=== PATIENT | female | born 1950 | race Caucasian/White ===

== ENCOUNTER 2021-04-25 16:58 | Outpatient (REF) | payer MEDICARE, BC, SELFPAY ==
[2021-04-25 21:37] LABS: Hemoglobin A1C 5.4 % (<5.7)
[2021-04-25 21:56] LABS: Calculated LDL 126 mg/dL (<100); Cholesterol 209 mg/dL (<200); HDL Cholesterol 66 mg/dL (40-60); Triglyceride 86 mg/dL (<150)
== END 2021-04-25 16:59 | disposition home or self-care (01) ==
LOC: NCHCN 16:58
PROVIDERS: PCP Family Medicine; Visit Provider Family Medicine
DX: Z00.00 Encounter for general adult medical examination without abnormal findings (principal); R73.03 Prediabetes; Z13.220 Encounter for screening for lipoid disorders
CPT/HCPCS: 80061; 83036

== ENCOUNTER 2023-10-28 16:51 | Outpatient (REF) | payer MEDICARE, BC, SELFPAY ==
[2023-10-28 15:30] LABS: Anion Gap 6.1 mmol/L (3-11); BUN 26 mg/dL (7-18); CO2 29.9 mmol/L (21.0-32.0); CREATININE 0.9 mg/dL (0.55-1.02); Calculated LDL 124 mg/dL (<100); Chloride 105 mmol/L (98-107); Cholesterol 221 mg/dL (<200); Estimated GFR 67.92 (mL/min/1.73m2); Glucose 117 mg/dL (74-106); HDL Cholesterol 79 mg/dL (40-60); Potassium 4.2 mmol/L (3.5-5.1); Sodium 141 mmol/L (136-145); Triglyceride 92 mg/dL (<150)
[2023-12-15 18:09] LABS: COMMENT (LAB VIEW ONLY) 20.87 mg/dL; Microalb ug/mg Crea 13.9 ug/mg Cr
== END 2023-10-28 16:52 | disposition home or self-care (01) ==
LOC: NCHCN 16:51
PROVIDERS: PCP Family Medicine; Visit Provider Family Medicine
DX: I10 Essential (primary) hypertension (principal)
CPT/HCPCS: 80048; 80061; 82043; 82570

== ENCOUNTER 2024-10-04 18:36 | Outpatient (REF) | payer MEDICARE, BC, SELFPAY ==
[2024-10-04 15:31] LABS: Anion Gap 10.7 mmol/L (3-11); BUN 16 mg/dL (7-18); CO2 26.3 mmol/L (21.0-32.0); CREATININE 0.9 mg/dL (0.55-1.02); Calcium 9.9 mg/dL (8.5-10.1); Chloride 105 mmol/L (98-107); Glucose 111 mg/dL (74-106); Potassium 3.9 mmol/L (3.5-5.1); Sodium 142 mmol/L (136-145)
--- OUTSIDE RECORDS SUMMARY | 2024-10-04 18:40 | XMS_ITS | Encounter Summary ---
Author Organization [facility] Address [address] [place] [address] Care Team Providers Care Financing Analyst Name Role Phone Angeline Osuna MD Primary Care Provider Reason for Referral * Radiology Services (Routine/Next Available) - Authorization Not Required Specialty Diagnoses / Procedures Referred By Syed corey Referred To Contact Diagnoses Other abnormal and inconclusive findings on diagnostic imaging of breast Procedures US BREAST LIMITED RIGHT Angeline Osuna MD [address] [place] [address] Phone: tel: fax: [facility] Referral ID Status Reason Start Date Expiration Date Visits Requested Visits Authorized [id number] Authorization Not Required 2 1 1 Reason for Visit * Radiology Services (Routine/Next Available) - Authorization Not Required Specialty Diagnoses / Procedures Referred By Syed corey Referred To Contact Diagnoses Other abnormal and inconclusive findings on diagnostic imaging of breast Procedures US BREAST LIMITED RIGHT Angeline Osuna MD [address] [place] [address] Phone: tel: fax: [facility] Referral ID Status Reason Start Date Expiration Date Visits Requested Visits Authorized [id number] Authorization Not Required 2 1 1 Encounter Details Date Type Department Care Team (Latest Contact Info) Description 04/17/2023 14:14 EDT - 04/17/2023 23:59 EDT Hospital Encounter [facility] Breast Imaging Ultrasound - [address] [address] Other abnormal and inconclusive findings on diagnostic imaging of breast Discharge Disposition: Home or Self Care Social History Tobacco Use Types Packs/Day Years Used Date Smoking Tobacco: Never Interpersonal Safety Answer Date Record ed Physically Hurt Never 03/29/2021 Verbally Threaten Not on file 03/29/2021 Comments No Sex and Gender Information Value Date Recorded Sex Assigned at Not on file Legal Sex Female 12:15 EDT Gender Identity Female 04/11/2021 17:48 EDT Sexual Orientation Not on file documented as of this encounter Discharge Disposition Disposition Code Departure Means Destination Home or Self Care documented in this encounter Plan of Treatment Upcoming Encounters Date Type Department Care Team (Late st Contact Info) Description 10/18/2024 16:30 EST Appointment [facility] Breast Imaging Mammography - [address] [address] documented as of this encounter Procedures Procedure Name Priority Date/Time Associated Diagnosis Comments US BREAST LIMITED RIGHT Routine 04/17/2023 15:35 EDT Other abnormal and inconclusive findings on diagnostic imaging of breast documented in this encounter Results * US BREAST LIMITED RIGHT (04/17/2023 15:35 EDT) Anatomical Region Laterality Modality Breast Right Ultrasound 04/17/2023 16:3 0 EDT Impressions 04/17/2023 16:30 EDT RIGHT BREAST: BI-RADS 2: Benign RECOMMENDATIONS: 1. ??No specific sonographic evidence of malignancy in the right breast. Annual screening mammography is recommended, due in March 2024. The communication spec discussed the radiologist's interpretation and follow up recommendations with the patient at the time of the examination. These results will be communicated to your patient via a lay letter from Radiology. OVERALL BI-RADS ASSESSMENT: BI-RADS 2: Benign Narrative 04/17/2023 16:30 EDT US BREAST LIMITED RIGHT ??04/17/2023 3:15 PM Signs and Symptoms/Comments: six month follow up right breast mass 3:30 o'clock 9 cm out ?? Comparison: Mammograms dated March 2023, September 2020, March 2009, September 2021, March 2021, February 2021, August 2014. Technique: Targeted ultrasound evaluation was performed of the right breast at 3:30 o'clock and 4:00. Findings: RIGHT BREAST ULTRASOUND: Targeted ultrasound was performed. At 3:30 o'clock, 9 cm from the nipple there is a 0.5 x 0.3 x 0.2 cm circumscribed gently lobulated hypoechoic parallel mass with no posterior features or internal vascularity. Previously, in September 2022 this mass measured 0.6 x 0.3 x 0.4 cm. Given interval decrease in size, this is consistent with a benign process. At 4:00, 5 cm from the nipple there is a 0.3 x 0.6 x 0.3 cm oval gently lobulated circumscribed hypoechoic parallel mass with no posterior features or internal vascularity. Previously, in September 2021 this mass measured 0.4 x 0.6 x 0.4 cm (my measurement). Mammographically, this mass has fluctuated in size over time, and appears similar to February 2021, consistent with a benign process. us Angeline Osuna MD IMG US ORDERABLES Final Result documented in this encounter Visit Diagnoses Diagnosis Other abnormal and inconclusive findings on diagnostic imaging of breast documented in this encounter Care Teams Financing Analyst Relationship Specialty Start Date End Date Angeline Osuna MD [address] [place] [address] PCP - General 04/19/15 documented as of this encounter
--- OUTSIDE RECORDS SUMMARY | 2024-10-04 18:40 | XMS_ITS | Referral Summary ---
Author Organization [facility] Address [address] [place] [address] Care Team Providers Care Ambulatory Services Representative Name Role Phone Angeline Osuna MD Primary Care Provider [phone] Allergies No known active allergies Medications No known medications Active Problems No known active problems Social History Tobacco Use Types Packs/Day Years Used Date Smoking Tobacco: Never Interpersonal Safety Answer Date Record ed Physically Hurt Never 03/29/2021 Verbally Threaten Not on file 03/29/2021 Comments No Sex and Gender Information Value Date Recorded Sex Assigned at Not on file Legal Sex Female 12:15 EDT Gender Identity Female 04/11/2021 17:48 EDT Sexual Orientation Not on file Last Filed Vital Signs Vital Sign Reading Time Taken Comments Blood Pressure - - Pulse - - Temperature 35.7 ??C (96.3 ??F) 04/21/2015 1008 EDT Respiratory Rate - - Oxygen Saturation - - Inhaled Oxygen Concentration - - Weight - - Height 157.5 cm (5' 2) 04/01/2022 1336 EDT Body Mass Index - - Plan of Treatment Upcoming Encounters Date Type Department Care Team (Late st Contact Info) Description 10/18/2024 16:30 EST Appointment [facility] Breast Imaging Mammography - [facility] [address] [place] [address] Insurance [facility] [place] [facility] [place] Care Teams Ambulatory Services Representative Relationship Specialty Start Date End Date Angeline Osuna MD [address] [place] [address] PCP - General 04/19/15
--- OUTSIDE RECORDS SUMMARY | 2024-10-04 18:40 | XMS_ITS | Encounter Summary ---
Author Organization [facility] Address [address] [place] [address] Care Team Providers Care Floor Coverings Salesperson Name Role Phone Angeline Osuna MD Primary Care Provider [phone] Reason for Referral * Radiology Services (Routine) - New Request Specialty Diagnoses / Procedures Referred By Syed corey Referred To Contact Diagnoses Inconclusive mammogram Procedures MA BREAST DIAGNOSTIC ANGEL Angeline Costa MD [address] [place] [address] Phone: tel: fax: Referral ID Status Reason Start Date Expiration Date V isits Requested Visits Authorized [id number] New Request 04/04/2021 1 1 Reason for Visit * Radiology Services (Routine) - New Request Specialty Diagnoses / Procedures Referred By Syed corey Referred To Contact Diagnoses Inconclusive mammogram Procedures MA BREAST DIAGNOSTIC Angeline Maldonado MD [address] [place] [address] Phone: tel: fax: Referral ID Status Reason Start Date Expiration Date V isits Requested Visits Authorized [id number] New Request 04/04/2021 1 1 Encounter Details Date Type Department Care Team (Latest Contact Info) Description 04/16/2021 11:00 EDT - 04/16/2021 13:10 EDT Hospital Encounter [facility] Breast Imaging Mammography - [address] [address] Inconclusive mammogram Discharge Disposition: Home or Self Care Social [...] 17:48 EDT Sexual Orientation Not on file COVID-19 Exposure Response Date Recorded In the last month, have you been in contact with someone who was confirmed or suspected to have Coronavirus / COVID-19? No / Unsure 04/16/2021 11:04 EDT documented as of this encounter Discharge Disposition Disposition Code Departure Means Destination Home or Self Care documented in this encounter Plan of Treatment Upcoming Encounters Date Type Department Care Team (Late st Contact Info) Description 10/18/2024 16:30 EST Appointment [facility] Breast Imaging Mammography - [address] [address] documented as of this encounter Procedures Procedure Name Priority Date/Time Associated Diagnosis Comments MA BREAST DIAGNOSTIC ANGEL RIGHT Routine 04/16/2021 11:34 EDT Inconclusive mammogram documented in this encounter Results * (ABNORMAL) MA BREAST DIAGNOSTIC ANGEL RIGHT (04/16/2021 11:34 EDT) Anatomical Region Laterality Modality Breast Right Mammography 04/16/2021 11:5 3 EDT Impressions 04/16/2021 11:53 EDT Right breast: BI-RADS Category 0 incomplete. An ultrasound of the inner breast will follow and will be dictated separately. Overall assessment incomplete. Narrative 04/16/2021 11:53 EDT MA BREAST DIAGNOSTIC ANGEL RIGHT ??04/16/2021 11:00 AM Signs and Symptoms/Comments: ?? right breast asymmetries superior on mlo view, focal asymmetry lower inner quadrant. Comparisons: Prior mammograms since 2013. Most recent screening mammogram 03/21/2021 There are scattered fibroglandular densities. TECHNIQUE: Spot compression views were obtained with 3-D/C view in CC and MLO projections in the lower inner right breast. Right breast findings: Several small well-circumscribed masses are noted in the inner breast, most of them seen located in the lower breast on the MLO projection. These are located 4 cm out from the nipple, 6 to 7 cm out from the nipple and 10 cm out from the nipple. Angeline Osuna MD IMG MAMMOGRAPHY ORDERABLES Fin al Result documented in this encounter Visit Diagnoses Diagnosis Inconclusive mammogram documented in this encounter Care Teams Floor Coverings Salesperson Relationship Specialty Start Date End Date Angeline Osuna MD [address] [place] [address] PCP - General 04/19/15 documented as of this encounter
--- OUTSIDE RECORDS SUMMARY | 2024-10-04 18:40 | XMS_ITS | Encounter Summary ---
Author Organization [facility] Address [address] [place] [address] Care Team Providers Care Umbrella Frame Maker Name Role Phone Angeline Osuna MD Primary Care Provider Reason for Referral * Radiology Services (Routine/Next Available) - Authorization Not Required Specialty Diagnoses / Procedures Referred By Syed corey Referred To Contact Diagnoses Other abnormal and inconclusive findings on diagnostic imaging of breast Procedures US BREAST LIMITED RIGHT Angeline Osuna MD [address] [place] [address] Phone: tel: fax: [facility] Referral ID Status Reason Start Date Expiration Date Visits Requested Visits Authorized [id number] Authorization Not Required 10/26/2021 1 1 Reason for Visit * Radiology Services (Routine/Next Available) - Authorization Not Required Specialty Diagnoses / Procedures Referred By Syed corey Referred To Contact Diagnoses Other abnormal and inconclusive findings on diagnostic imaging of breast Procedures US BREAST LIMITED RIGHT Angeline Osuna MD [address] [place] [address] Phone: tel: fax: [facility] Referral ID Status Reason Start Date Expiration Date Visits Requested Visits Authorized [id number] Authorization Not Required 10/26/2021 1 1 Encounter Details Date Type Department Care Team (Latest Contact Info) Description 04/01/2022 13:18 EDT - 04/01/2022 23:59 EDT Hospital Encounter [facility] Breast Imaging Ultrasound - [address] [id number] Other abnormal and inconclusive findings on diagnostic [...] Contact Info) Description 10/18/2024 16:30 EST Appointment [facility] Breast Imaging Mammography - [address] [phone] documented as of this encounter Procedures Procedure Name Priority Date/Time Associated Diagnosis Comments US BREAST LIMITED RIGHT Routine 04/01/2022 14:36 EDT Other abnormal and inconclusive findings on diagnostic imaging of breast documented in this encounter Results * US BREAST LIMITED RIGHT (04/01/2022 14:36 EDT) Anatomical Region Laterality Modality Breast Right Ultrasound 04/01/2022 15:1 7 EDT Addenda Addendum by Rhoda Clements MD MPH on 04/01/2022 16:55 EDT Addendum: Follow up right breast mammogram and targeted ultrasound should be performed in 6 months. Impressions 04/01/2022 15:17 EDT Right breast impression: BI-RADS 3: ??Probably benign. Left breast impression: BI-RADS 1: Negative. Recommendation: 1. Inner right breast radiopaque focal asymmetry and focal shadowing sonographically at the site of a previously demonstrated oil cyst, likely representing evolution of the oil cyst. Recommend short interval right breast mammogram to include full- field synthetic 2-D/3-D CC and MLO views in addition to targeted right breast ultrasound to ensure ongoing stability. 2. Stable inner right breast masses at the 4:00 5 cm from the nipple which can be reevaluated at the time of follow-up imaging. 3. Routine screening mammography is recommended on the left will be due Mar, 2023. Overall assessment: BI-RADS 3: ??Probably benign. The staff nurse midwife discussed the radiologist's interpretation and follow up recommendations with the patient at the time of the examination. These results will be communicated to your patient via a lay letter from Radiology. If any additional imaging is needed we will contact your patient directly. Narrative 04/01/2022 15:17 EDT MA BREAST DIAGNOSTIC ANGEL BILATERAL, US BREAST LIMITED RIGHT ??04/01/2022 1:30 PM Signs and Symptoms/Comments: six month follow up multiple small masses noted in the lower inner quadrant of the right breast. screen left breast Comparison: October 03, 2021, April 16, 2021, March 21, 2021, September 20, 2014. TECHNIQUE: Full-field synthetic 2-D/3-D CC and MLO views of the breasts were performed. This examination was interpreted with the aid of computer-assisted detection (CAD) technology. Grayscale and color Doppler ultrasound was in the right breast at the 2:00, 3:00, and 4:00 positions. Right breast mammographic findings: There are scattered areas of fibroglandular density. The previously described multiple small masses noted in the lower inner quadrant of the right breast are not substantially changed. The rim calcified oil cyst also seen in this region appears more radiopaque mammographically. Right breast ultrasound findings: The previously described tiny cysts at the 2:00 8 cm from the nipple could not be replicated on the current study. At the 4:00 5 cm from the nipple there are 2 stable hypoechoic masses, the more superficial of which measures 0.2 x 0.1 x 0.2 cm, previously 0.3 x 0.1 x 0.3 cm and the second one which is deeper in location measures 0.4 x 0.3 x 0.3 cm, previously 0.4 x 0.4 x 0.2 cm. No suspicious solid or cystic sonographic findings are seen. At the 3:00 6 cm from the nipple there is focal shadowing at the site of prior oil cyst seen sonographically October 03, 2021. This corresponds to the above- described mammographic finding, likely representing evolution of the previously seen oil cyst in this location. ?? Left breast mammographic findings: There are scattered areas of fibroglandular density. No suspicious mass, microcalcification, or other abnormality is seen. us Angeline Osuna MD [facility] [place]LES Edited Resul t - Final documented in this encounter Visit Diagnoses Diagnosis Other abnormal and inconclusive findings on diagnostic imaging of breast documented in this encounter Care Teams Umbrella Frame Maker Relationship Specialty Start Date End Date Angeline Osuna MD [address] [place] [phone] PCP - General 04/19/15 documented as of this encounter
--- OUTSIDE RECORDS SUMMARY | 2024-10-04 18:40 | XMS_ITS | Encounter Summary ---
Author Organization [facility] Address [address] [place] [address] Care Team Providers Care Cotton Ginner Name Role Phone Angeline Osuna MD Primary Care Provider [phone] Reason for Referral * Radiology Services (Routine) - Closed Specialty Diagnoses / Procedures Referred By Syed corey Referred To Contact Diagnoses Breast asymmetry in female Procedures US BREAST LIMITED RIGHT Angeline Osuna MD [address] [place] [address] Phone: tel: fax: Referral ID Status Reason Start Date Expiration Date Visits Re quested Visits Authorized [id number] Closed 05/04/2021 1 1 Reason for Visit * Radiology Services (Routine) - Closed Specialty Diagnoses / Procedures Referred By Syed corey Referred To Contact Diagnoses Breast asymmetry in female Procedures US BREAST LIMITED RIGHT Angeline Osuna MD [address] [place] [address] Phone: tel: fax: Referral ID Status Reason Start Date Expiration Date Visits Re quested Visits Authorized [id number] Closed 05/04/2021 1 1 Encounter Details Date Type Department Care Team (Latest Contact Info) Description 10/03/2021 13:58 EST - 10/03/2021 23:59 EST Hospital Encounter [facility] Breast Imaging Ultrasound - [facility] [address] [place] [address] Breast asymmetry in female Discharge Disposition: Home or Self Care Social [...] have Coronavirus / COVID-19? No / Unsure 10/03/2021 13:57 EST documented as of this encounter Discharge Disposition Disposition Code Departure Means Destination Home or Self Care documented in this encounter Plan of Treatment Upcoming Encounters Date Type Department Care Team (Late st Contact Info) Description 10/18/2024 16:30 EST Appointment [facility] Breast Imaging Mammography - [address] [address] documented as of this encounter Procedures Procedure Name Priority Date/Time Associated Diagnosis Comments US BREAST LIMITED RIGHT Routine 10/03/2021 15:41 EST Breast asymmetry in female documented in this encounter Results * US BREAST LIMITED RIGHT (10/03/2021 15:41 EST) Anatomical Region Laterality Modality Breast Right Ultrasound 10/03/2021 16:0 3 EST Narrative 10/03/2021 16:03 EST MA BREAST DIAGNOSTIC RIGHT, US BREAST LIMITED RIGHT ??10/03/2021 2:00 PM Signs and Symptoms/Comments: 6 month follow up- right breast asymmetries medial, and focal asymmetry lower inner quadrant. Comparison: Prior mammography and sonography in March of 2021 and outside mammogram in February 2021 and August 2014. Right breast findings: Digital diagnostic views of the right breast were obtained with standard 3-D/synthesized 2-D technique. There are scattered areas of fibroglandular density. There are multiple small masses noted in the lower inner quadrant of the right breast and some which are clearly oil cysts. Overall none of these show significant change from February and March 2021. Sonography was targeted to the multiple areas of prior sonographic concern. There are two tiny cysts noted at 2:00, 8 cm from the nipple, not significantly changed. A small benign appearing cyst is noted at 3:00, 6 cm from the nipple, also not significantly changed. There is a hypoechoic mass at 4:00, 5 cm from the nipple which currently measures 0.4 x 0.4 cm, minimally increased compared with March 2021. A second finding located more anteriorly also at 4:00, 5 cm from the nipple, has significantly decreased in size. The previously identified finding at 2:00, 12 cm from the nipple, is not currently seen and sonography. Impression right breast: Likely benign, BI-RADS Category 3. Recommendation: All or most of the findings seen on mammography and sonography in the right breast most likely represent regions of fat necrosis or oil cysts. Short interval follow-up mammography and sonography is recommended in six months. The patient will be due for bilateral mammography at that time in March 2022. This examination was interpreted with the aid of computer-assisted detection (CAD) technology. Results and recommendations were discussed with the patient by the mid level project manager at the time of the exam. Overall assessment: BI-RADS Category Assessment 3: ??Probably benign. These results will be communicated to your patient via a lay letter from Radiology. us Angeline Osuna MD IMG US ORDERABLES Final Result documented in this encounter Visit Diagnoses Diagnosis Breast asymmetry in female Other specified disorders of breast documented in this encounter Care Teams Cotton Ginner Relationship Specialty Start Date End Date Angeline Osuna MD [address] [place] [phone] PCP - General 04/19/15 documented as of this encounter
--- OUTSIDE RECORDS SUMMARY | 2024-10-04 18:40 | XMS_ITS | Encounter Summary ---
Author Organization [facility] Address [address] [place] [address] Care Team Providers Care Barrer And Tacker Name Role Phone Angeline Osuna MD Primary Care Provider [phone] Reason for Visit * Reason Onset Date Comments Results 04/05/2022 Encounter Details Date Type Department Care Team (Late st Contact Info) Description 04/05/2022 Telephone [facility] Breast Imaging Mammography - [facility] [address] [place], [place] [id number] Siomara An Results Social History Tobacco Use Types Packs/Day Years [...] on file documented as of this encounter Miscellaneous Notes * Telephone Encounter - Siomara An - 04/05/2022 1435 EDT Spoke with patient and let her know that she will be getting a new results letter stating that she is due for follow up in six months, rather than a year as her original results letter had stated. documented in this encounter Plan of Treatment Upcoming Encounters Date Type Department Care Team (Late st Contact Info) Description 10/18/2024 16:30 EST Appointment [facility] Breast Imaging Mammography - [address] [phone] documented as of this encounter Visit Diagnoses Not on filedocumented in this encounter Care Teams Barrer And Tacker Relationship Specialty Start Date End Date Angeline Osuna MD [address] [place] [phone] PCP - General 04/19/15 documented as of this encounter
--- OUTSIDE RECORDS SUMMARY | 2024-10-04 18:40 | XMS_ITS | Encounter Summary ---
Author Organization [facility] Address [address] [place] [address] Care Team Providers Care Television Producer Name Role Phone Angeline Osuna MD Primary Care Provider [phone] Reason for Referral * Radiology Services (Routine/Next Available) - Authorization Not Required Specialty Diagnoses / Procedures Referred By Syed t Referred To Contact Diagnoses Breast mass, right Procedures US BREAST LIMITED RIGHT Angeline Osuna MD [address] [place] [address] Phone: tel: fax: [facility] Referral ID Status Reason Start Date Expiration Date Visits Requested Visits Authorized [id number] Authorization Not Required 2 1 1 Reason for Visit * Radiology Services (Routine/Next Available) - Authorization Not Required Specialty Diagnoses / Procedures Referred By Syed corey Referred To Contact Diagnoses Breast mass, right Procedures US BREAST LIMITED RIGHT Angeline Osuna MD [address] [place] [address] Phone: tel: fax: [facility] Referral ID Status Reason Start Date Expiration Date Visits Requested Visits Authorized [id number] Authorization Not Required 2 1 1 Encounter Details Date Type Department Care Team (Latest Contact Info) Description 10/23/2022 13:16 EST - 10/23/2022 23:59 EST Hospital Encounter [facility] Breast Imaging Ultrasound - [facility] [address] [place] [address] Breast mass, right Discharge Disposition: Home or Self Care Social [...] Contact Info) Description 10/18/2024 16:30 EST Appointment [facility] Breast Imaging Mammography - [address] [address] documented as of this encounter Procedures Procedure Name Priority Date/Time Associated Diagnosis Comments US BREAST LIMITED RIGHT Routine 10/23/2022 14:53 EST Breast mass, right documented in this encounter Results * US BREAST LIMITED RIGHT (10/23/2022 14:53 EST) Anatomical Region Laterality Modality Breast Right Ultrasound 10/23/2022 15:2 7 EST Impressions 10/23/2022 15:27 EST Right breast: BI-RADS Category 3 probably benign. 1. Overall mammographic stability. 2. The mass is at 4:00 5 cm out are stable or smaller. No additional follow-up is needed. 3. Not previously documented sonographic abnormality at 3:30 o'clock 9 cm out measuring 6 mm in largest dimension. I believe it correlates with a mammographically stable mass. Recommend 6 month follow-up ultrasound targeted to this finding at the time of the screening mammogram due in March 2023. Results and recommendations were discussed with the patient by the spinning mule operator at the time of the exam. The patient will be notified of her breast imaging results via a lay letter from radiology. Overall assessment probably benign. Narrative 10/23/2022 15:27 EST MA BREAST DIAGNOSTIC ANGEL RIGHT, US BREAST LIMITED RIGHT ??10/23/2022 1:30 PM Signs and Symptoms/Comments: ?? 6 mo f/u multiple small masses noted in the lower inner quadrant of the right breast. Comparisons: April 01, 2022, October 03, 2021, April 16, 2021 and March 21 2021 and multiple prior ultrasound. TECHNIQUE: Right breast diagnostic digital mammography obtained in usual projections with 3-D/C view. This examination was interpreted with the aid of computer-assisted detection (CAD) technology. Targeted ultrasound of the 4:00 position 5 cm out performed. There are scattered fibroglandular densities. Right breast findings: Multiple masses noted in the lower inner breast are stable. A few dystrophic calcifications are also present and stable. No new mammographic abnormality. Right breast ultrasound findings: Of note, the patient has had a recent shoulder injury. Therefore, study was performed with arm down given limitation with mobility of the shoulder. This may affect labeling of the lesions. The first mass at 4:00 5 cm out from nipple (most superficial) is stable measures 2 mm in largest dimension. The second mass at 4:00 5 cm out which is located deeper has decreased in size measures 3.5 mm in largest dimension previously 4 mm. At 3:30 o'clock 9 cm out from the nipple is a lobulated hypoechoic mass measuring 6 x 3 x 4 mm. I am uncertain if it correlates with a previously documented cyst at 3:00 6 cm out. The lesion is not completely anechoic on today's exam. On mammography, it is felt to correlate with a lower inner quadrant mass 10 cm out which has been mammographically stable. Angeline Osuna MD [facility] [place] Final Result documented in this encounter Visit Diagnoses Diagnosis Breast mass, right Lump or mass in breast documented in this encounter Care Teams Television Producer Relationship Specialty Start Date End Date Angeline Osuna MD [address] [facility] [place] [phone] PCP - General 04/19/15 documented as of this encounter
--- OUTSIDE RECORDS SUMMARY | 2024-10-04 18:40 | XMS_ITS | Encounter Summary ---
Author Organization [facility] Address [address] [place] [address] Care Team Providers Care Assembler Latches And Springs Name Role Phone Angeline Osuna MD Primary Care Provider [phone] Reason for Referral * Radiology Services (Routine) - New Request Specialty Diagnoses / Procedures Referred By Syed corey Referred To Contact Diagnoses Breast asymmetry in female Procedures MA BREAST DIAGNOSTIC RIGHT Angeline Osuna MD [address] [place] [address] Phone: tel: fax: Referral ID Status Reason Start Date Expiration Date V isits Requested Visits Authorized [id number] New Request 05/04/2021 1 1 Reason for Visit * Radiology Services (Routine) - New Request Specialty Diagnoses / Procedures Referred By Syed corey Referred To Contact Diagnoses Breast asymmetry in female Procedures MA BREAST DIAGNOSTIC RIGHT Angeline Osuna MD [address] [place] [address] Phone: tel: fax: Referral ID Status Reason Start Date Expiration Date V isits Requested Visits Authorized [id number] New Request 05/04/2021 1 1 Encounter Details Date Type Department Care Team (Latest Contact Info) Description 10/03/2021 13:58 EST - 10/03/2021 23:59 EST Hospital Encounter [facility] Breast Imaging Mammography - [facility] [address] [place] [address] Breast asymmetry in female Discharge Disposition: Home [...] Contact Info) Description 10/18/2024 16:30 EST Appointment [facility] Breast Imaging Mammography - [address] [address] documented as of this encounter Procedures Procedure Name Priority Date/Time Associated Diagnosis Comments MA BREAST DIAGNOSTIC RIGHT Routine 10/03/2021 14:27 EST Breast asymmetry in female documented in this encounter Results * MA BREAST DIAGNOSTIC RIGHT (10/03/2021 14:27 EST) Anatomical Region Laterality Modality Breast Right Mammography 10/03/2021 16:0 3 EST Narrative 10/03/2021 16:03 [...] were discussed with the patient by the college sports assistant at the time of the exam. Overall assessment: BI-RADS Category Assessment 3: ??Probably benign. These results will be communicated to your patient via a lay letter from Radiology. Result [facility] Angeline Osuna MD [facility] [place] MAMMOGRAPHY ORDERABLES Fin al Result documented in this encounter Visit Diagnoses Diagnosis Breast asymmetry in female Other specified disorders of breast documented in this encounter Care Teams Assembler Latches And Springs Relationship Specialty Start Date End Date Angeline Osuna MD [address] [place] [address] PCP - General 04/19/15 documented as of this encounter
--- OUTSIDE RECORDS SUMMARY | 2024-10-04 18:40 | XMS_ITS | Encounter Summary ---
Author Organization [facility] Address [address] [place] [address] Care Team Providers Care Wine Maker Name Role Phone Angeline Osuna MD Primary Care Provider [phone] Reason for Visit * Reason Comments Travel Consult Encounter Details Date Type Department Care Team (Late st Contact Info) Description 04/21/2015 10:00 EDT Office Visit [facility] Infectious Disease - [facility] [address] [place], [place] [id number] Belle Milligan FNP [facility] [address] [place] [address] [phone] Other specified counseling (Primary Dx) Social History Tobacco Use Types Packs/Day Years Used Date Smoking Tobacco: Never Comments Unknown Sex and Gender Information Value Date Recorded Sex Assigned at Not on file Legal Sex Female 12:15 EDT Gender Identity Female 04/11/2021 17:48 EDT Sexual Orientation Not on file documented as of this encounter Last Filed Vital Signs Vital Sign Reading Time Taken Comments Blood Pressure - - Pulse - - Temperature 35.7 ??C (96.3 ??F) 04/21/2015 1008 EDT Respiratory Rate - - Oxygen Saturation - - Inhaled Oxygen Concentration - - Weight - - Height - - Body Mass Index - - documented in this encounter Discharge Diagnoses Diagnosis V65.49 COUNSELING OTHER SPECIFIED[ICD-9-CM] documented in this encounter Progress Notes * Belle Milligan L - 04/21/2015 1253 EDT Travel Health Service Department of Medicine Progress Notes Travel: Where: [place] and [place] How Lon weeks When: May 13, 2015 Purpose: Business Previous: [place] No Known Allergies No current outpatient prescriptions on file. No past medical history on file. No LMP recorded. Immunodeficiency: None There is no immunization history on file for this patient. Risk/Benefit Review: Yellow fever or malaria maps reviewed. Ms. Yanez is going to yellow fever and malaria area. We had a long discussion about the pros and cons of yellow fever vaccine in someoneover the age of 60 who is going to yellow fever area. We discussed her increased risk of serious adverse reactions to the vaccine as well as the real risk of yellow fever disease. Ms. Yanez decided that she would rather cancel this trip rather than have yellow fever vaccine. We also discussed food borne illnesses, in particular hepatitis A and typhoid. 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 Yanez . Will call here if she decides to go on this trip. I suggested that she had serology done at her primary care provider is C if in fact she is immune tohepatitis A Total visit time: 20 minutes. Time spent on counseling by provider: 20 minutes. Cc: documented in this encounter Plan of Treatment Upcoming Encounters Date Type Department Care Team (Late st Contact Info) Description 10/18/2024 16:30 EST Appointment [facility] Breast Imaging Mammography - [address] [id number] documented as of this encounter Visit Diagnoses Diagnosis Other specified counseling- Primary documented in this encounter Care Teams Wine Maker Relationship Specialty Start Date End Date Angeline Osuna MD [address] [place] [address] PCP - General 04/19/15 documented as of this encounter
--- OUTSIDE RECORDS SUMMARY | 2024-10-04 18:40 | XMS_ITS | Encounter Summary ---
Author Organization [facility] Address [address] [place] [address] Care Team Providers Care Web Machine Tender Name Role Phone Angeline Osuna MD Primary Care Provider Reason for Referral * Radiology Services (Routine/Next Available) - New Request Specialty Diagnoses / Procedures Referred By Syed corey Referred To Contact Diagnoses Breast mass, right Procedures MA BREAST DIAGNOSTIC ANGEL Angeline Costa MD [address] [place] [address] Phone: tel: fax: [facility] Referral ID Status Reason Start Date Expiration Date V isits Requested Visits Authorized [id number] New Request 09/19/2022 1 1 Reason for Visit * Radiology Services (Routine/Next Available) - New Request Specialty Diagnoses / Procedures Referred By Syed corey Referred To Contact Diagnoses Breast mass, right Procedures MA BREAST DIAGNOSTIC Angeline Maldonado MD [address] [place] [address] Phone: tel: fax: [facility] Referral ID Status Reason Start Date Expiration Date V isits Requested Visits Authorized [id number] New Request 09/19/2022 1 1 Encounter Details Date Type Department Care Team (Latest Contact Info) Description 10/23/2022 13:16 EST - 10/23/2022 23:59 EST Hospital Encounter [facility] Breast Imaging Mammography [address] [address] Breast mass, right Discharge Disposition: Home or [...] Info) Description 10/18/2024 16:30 EST Appointment [facility] Breast Imaging [address] [address] documented as of this encounter Procedures Procedure Name Priority Date/Time Associated Diagnosis Comments MA BREAST DIAGNOSTIC ANGEL RIGHT Routine 10/23/2022 13:34 EST Breast mass, right documented in this encounter Results * MA BREAST DIAGNOSTIC ANGEL RIGHT (10/23/2022 13:34 EST) Anatomical Region Laterality Modality Breast Right Mammography 10/23/2022 15:2 7 EST Impressions 10/23/2022 15:27 [...] were discussed with the patient by the human services worker at the time of the exam. The [...] has been mammographically stable. Angeline Osuna MD [facility] [place] MAMMOGRAPHY ORDERABLES Fin al Result documented in this encounter Visit Diagnoses Diagnosis Breast mass, right Lump or mass in breast documented in this encounter Care Teams Web Machine Tender Relationship Specialty Start Date End Date Angeline Osuna MD [address] [place] [phone] PCP - General 04/19/15 documented as of this encounter
--- OUTSIDE RECORDS SUMMARY | 2024-10-04 18:40 | XMS_ITS | Encounter Summary ---
Author Organization [facility] Address [address] [place] [address] Care Team Providers Care Bow Maker Custom Name Role Phone Angeline Osuna MD Primary Care Provider [phone] Reason for Referral * Radiology Services (Routine) - Closed Specialty Diagnoses / Procedures Referred By Syed corey Referred To Contact Diagnoses Inconclusive mammogram Procedures US BREAST LIMITED RIGHT Angeline Osuna MD [address] [place] [address] Phone: tel: fax: Referral ID Status Reason Start Date Expiration Date Visits Re quested Visits Authorized [id number] Closed 04/04/2021 1 1 Reason for Visit * Radiology Services (Routine) - Closed Specialty Diagnoses / Procedures Referred By Syed corey Referred To Contact Diagnoses Inconclusive mammogram Procedures US BREAST LIMITED RIGHT Angeline Osuna MD [address] [place] [address] Phone: tel: fax: Referral ID Status Reason Start Date Expiration Date Visits Re quested Visits Authorized [id number] Closed 04/04/2021 1 1 Encounter Details Date Type Department Care Team (Latest Contact Info) Description 04/16/2021 13:11 EDT - 04/16/2021 23:59 EDT Hospital Encounter [facility] Breast Imaging Ultrasound - [facility] [address] [place] [address] [phone] Inconclusive mammogram Discharge Disposition: Home or Self [...] [facility] Breast Imaging Mammography - [address] [address] documented as of this encounter Procedures Procedure Name Priority Date/Time Associated Diagnosis Comments US BREAST LIMITED RIGHT Routine 04/16/2021 13:44 EDT Inconclusive mammogram documented in this encounter Results * US BREAST LIMITED RIGHT (04/16/2021 13:44 EDT) Anatomical Region Laterality Modality Breast Right Ultrasound 04/16/2021 14:2 3 EDT Narrative 04/16/2021 14:23 EDT US BREAST LIMITED RIGHT ??04/16/2021 1:15 PM Clinical History/Comments: right breast asymmetries medial, and focal asymmetry lower inner quadrant. Comparisons: Outside mammogram 09/20/2014, screening mammogram performed at our institution, 03/21/2021 and diagnostic mammography performed at our institution, 04/16/2021. Findings right breast ultrasound: The medial right breast was scanned ultrasound utilizing grayscale, Doppler and real-time technique. At the 2:00 position, 12 cm out from the nipple, there is an anechoic, oval mass measuring 2.6 x 3.6 x 2.9 mm. This has the appearance most consistent with an area of fat necrosis; located in the premammary fat. At the 2:00 position, 8 cm out from the nipple there are 3, circumscribed, round anechoic masses. 2 are located in the premammary fat and one is located in the retromammary fat. They are each approximately 2.5 mm in maximum dimension. These are consistent with fat necrosis and not viewed with concern. At the 3:00 position, 6 cm out from the nipple there is a mostly anechoic oval mass which also likely reflects an area of fat necrosis. It measures 5.2 x 4 x 4.3 mm. At the 4:00 position, 5 cm out from the nipple there are 2 adjacent hypoechoic nodules within premammary fat. The more anterior nodule measures 3.7 x 3.5 x 4.4 mm. The more posterior nodule measures 3.7 x 2.8 x 3.4 mm. These masses parallel the chest wall and lack internal vascularity. They may also reflect areas of developing fat necrosis. These are not viewed with particular concern. Impression right breast: BI-RADS Category 3. Probably benign. Probable fat necrosis at 2:00, 12 cm out from the nipple and 3:00, 6 cm out from the nipple. At the 4:00 position, 5 cm out from the nipple there are 2 hypoechoic masses which may reflect developing fat necrosis. Three areas of fat necrosis are seen at the 2:00 position, 8 cm out from the nipple. Recommendation right breast: 6 month follow-up mammography and ultrasound to ensure continued stability. Overall assessment: Probably benign. Dr. Qureshi discussed the imaging findings and recommendations with the patient at the time of the examination. The patient will be notified of her breast imaging results via a lay letter from Radiology. ??Radiology will contact the patient directly regarding any findings which require additional imaging. This document has been prepared using voice recognition software and/or keyboard customer data technician. ??All reasonable efforts have been made to ensure accuracy. ??However, minor irregularities or keyboard misprints may be present. ??If you find an error, or have any concerns, please contact Dr. Brii Qureshi at [email or web address] Angeline Osuna MD [facility] [place] Final Result documented in this encounter Visit Diagnoses Diagnosis Inconclusive mammogram documented in this encounter Care Teams Bow Maker Custom Relationship Specialty Start Date End Date Angeline Osuna MD [address] [place] [phone] PCP - General 04/19/15 documented as of this encounter
--- OUTSIDE RECORDS SUMMARY | 2024-10-04 18:40 | XMS_ITS | Encounter Summary ---
Author Organization [facility] Address [address] [place] [address] Care Team Providers Care International Account Executive Name Role Phone Angeline Osuna MD Primary Care Provider [phone] Reason for Visit * Reason Onset Date Comments Appointment Related 11/07/2022 Encounter Details Date Type Department Care Team (Late st Contact Info) Description 11/07/2022 Telephone [facility] Breast Imaging Mammography - [address] [address] Araseli Flower Appointment Related Social History Tobacco Use Types Packs/Day Years [...] encounter Miscellaneous Notes * Telephone Encounter - Araseli Flower - 11/07/2022 1801 EST Left patient a message to call back breast imaging at [phone] documented in this encounter Plan of Treatment Upcoming Encounters Date Type Department Care Team (Late st Contact Info) Description 10/18/2024 16:30 EST Appointment [facility] Breast Imaging Mammography - [address] [address] documented as of this encounter Visit Diagnoses Not on filedocumented in this encounter Care Teams International Account Executive Relationship Specialty Start Date End Date Angeline Osuna MD [address] [place] [phone] PCP - General 04/19/15 documented as of this encounter
--- OUTSIDE RECORDS SUMMARY | 2024-10-04 18:40 | XMS_ITS | Encounter Summary ---
Author Organization [facility] Address [address] [place] [address] Care Team Providers Care Strip Cutting Machine Operator Name Role Phone Angeline Osuna MD Primary Care Provider [phone] Reason for Visit * Reason Onset Date Comments Appointment Related 04/04/2021 Encounter Details Date Type Department Care Team (Late st Contact Info) Description 04/04/2021 Telephone [facility] Breast Imaging [facility] - [address] [address] Rosa Maria Tan Appointment Related Social History Tobacco Use Types Packs/Day Years Used Date Smoking Tobacco: Never Interpersonal Safety Answer Date Record ed Physically Hurt Never 03/29/2021 Verbally Threaten Not on file 03/29/2021 Comments Unknown Sex and Gender Information Value Date Recorded Sex Assigned at Not on file Legal Sex Female 12:15 EDT Gender Identity Female 04/11/2021 17:48 EDT Sexual Orientation Not on file documented as of this encounter Miscellaneous Notes * Telephone Encounter - Rosa Maria Tan - 04/04/2021 1138 EDT Reached patient and she is now scheduled for breast imaging on 04/16/21 documented in this encounter Plan of Treatment Upcoming Encounters Date Type Department Care Team (Late st Contact Info) Description 10/18/2024 16:30 EST Appointment [facility] Breast Imaging Mammography - [address] [address] documented as of this encounter Visit Diagnoses Not on filedocumented in this encounter Care Teams Strip Cutting Machine Operator Relationship Specialty Start Date End Date Angeline Osuna MD [address] [place] [phone] PCP - General 04/19/15 documented as of this encounter
--- OUTSIDE RECORDS SUMMARY | 2024-10-04 18:40 | XMS_ITS | Encounter Summary ---
Author Organization [facility] Address [address] [place] [address] Care Team Providers Care Replenishment Associate Name Role Phone Angeline Osuna MD Primary Care Provider [phone] Encounter Details Date Type Department Care Team (Latest Contact Info) Description 04/16/2021 Travel Social History Tobacco Use Types Packs/Day Years [...] 11:04 EDT documented as of this encounter Plan of Treatment Upcoming Encounters Date Type Department Care Team (Late st Contact Info) Description 10/18/2024 16:30 EST Appointment [facility] Breast Imaging Mammography - [facility] [address] [place], [place] [address] documented as of this encounter Visit Diagnoses Not on filedocumented in this encounter Care Teams Replenishment Associate Relationship Specialty Start Date End Date Angeline Osuna MD [address] [facility] [phone] PCP - General 04/19/15 documented as of this encounter
--- OUTSIDE RECORDS SUMMARY | 2024-10-04 18:40 | XMS_ITS | Encounter Summary ---
Author Organization [facility] Address [address] [place] [address] Care Team Providers Care Synthetic Department Supervisor Name Role Phone Unknown, Provider Primary Care Provider Unava ilable Encounter Details Date Type Department Care Team (Late st Contact Info) Description 07/27/2014 Results Only [facility] Laboratory Services - [facility] [place]) [address] [place] [id number] Angeline Mas MD [address] [place] [phone] Social History Tobacco Use Types Packs/Day Years Used Date Smoking Tobacco: Never Assessed Comments Unknown Sex and Gender Information Value Date Recorded Sex Assigned at Not on file Legal Sex Female 12:15 EDT Gender Identity Female 04/11/2021 17:48 EDT Sexual Orientation Not on file documented as of this encounter Plan of Treatment Upcoming Encounters Date Type Department Care Team (Late st Contact Info) Description 10/18/2024 16:30 EST Appointment [facility] Breast Imaging Mammography - [address] [address] documented as of this encounter Procedures Procedure Name Priority Date/Time Associated Diagnosis Comments PAP TEST- RESULT ONLY Routine 07/27/2014 0:00 EDT documented in this encounter Results * PAP TEST- RESULT ONLY (07/27/2014 0:00 EDT) Pathology Report: CYTOPATHOLOGY REPORT Reports generated via electronic interface contain original data; however they are lacking the format of the original report. Caution should be taken when reading/interpreti ng unformatted reports. Name: ? KARENAlbertoEDDIE SMITH ? Accession #: ? [id number] ? : ? 1950 (Age: 63) ??F ?Collect Date: ? 07/27/2014 ? Location: ? [facility] ? Receive Date: ? 07/29/2014 ? Provider: ANGELINE MAS MD Copy to: ? Final Report SPECIMEN ADEQUACY ? Satisfactory for Evaluation - transformation zone component present GENERAL CATEGORIZATION ? Negative for Intraepithelial Lesion or Malignancy ?? Last Menstrual Period: 10 yrs ago Specimen/Source: ??Pap Test, Cervix/Endocervix, ThinPrep Imaging System with manual evaluation Document reviewed and electronically signed by: ? BARBARA Bearden(ASCP) ? Report ??Date: 08/04/2014 09:19 HPV with Pap Test ? Date Ordered: ? 08/04/2014 ? Status: ?? Signed Out ?Date Complete: ? 08/08/2014 ? By: ??System Interface ? Date Reported: ? 08/08/2014 ? Interpretation RESULT: Negative for HPV. No E6 or E7 mRNA is detected from HPV types 16,18,31,33,35, 39,45,51,52,56,58, 59,66, and 68 by cbx operator mediated amplification. Comments Document reviewed and electronically signed by: ? System Interface ? Report date: 08/08/2014 By the signature above, the attending physician certifies that he/she has personally conducted a gross and/or microscopic examination of the described specimens and rendered or confirmed the above diagnosis. End of Report [facility] 07/27/2014 07/29/2014 us Angeline Mas MD PATHOLOGY ORDERABLES Final Res ult [facility] [address] [place] [address] documented in this encounter Visit Diagnoses Not on filedocumented in this encounter Care Teams Synthetic Department Supervisor Relationship Specialty Start Date End Date Unknown, Provider, PCP - General 07/29/14 04/18/15 documented as of this encounter
--- OUTSIDE RECORDS SUMMARY | 2024-10-04 18:40 | XMS_ITS | Encounter Summary ---
Author Organization [facility] Address [address] [place] [address] Care Team Providers Care Enhanced Environmental Operator Name Role Phone Angeline Osuna MD Primary Care Provider [phone] Reason for Visit * Reason Onset Date Comments Appointment Related 09/06/2021 Encounter Details Date Type Department Care Team (Late st Contact Info) Description 09/06/2021 Telephone [facility] Breast Imaging [facility] - [address] [address] Rosa Maria Tan Appointment Related [...] Telephone Encounter - Rosa Maria Tan - 09/06/2021 1433 EDT Patient called in and she is now scheduled for breast imaging on 10/03/21 documented in this encounter Plan of Treatment Upcoming Encounters Date Type Department Care Team (Late st Contact Info) Description 10/18/2024 16:30 EST Appointment [facility] Breast Imaging Mammography - [facility] [address] [place] [address] documented as of this encounter Visit Diagnoses Not on filedocumented in this encounter Care Teams Enhanced Environmental Operator Relationship Specialty Start Date End Date Angeline Osuna MD [address] [place] [phone] PCP - General 04/19/15 documented as of this encounter
--- OUTSIDE RECORDS SUMMARY | 2024-10-04 18:40 | XMS_ITS ---
Author Organization Unknown Address [address] [place] [phone] Phone Care Team Providers Care Doll Surgeon Name Role Phone JOSE Elaine Attending Unavailable CHACE Mendez Primary Unavailable Social History Type Status Start Date End Date Code Code Syst em Smoking History Former smoker [id number] SNOMED CT Sex Female Hospital Discharge Instructions Should you have any questions prior to discharge, please contact a member of your healthcare team. If you have left the hospital and have any questions, please contact your primary care physician. Reason For Referral No Data Found Plan of Treatment No Data Found Encounters Encounter Diagnosis Start Date Code Code Sys tem Tailor's bunion of right foot 01/20/2023 [id number] SNOMED-CT Personal Care Team Section Performer Name Performer Role Active Date Inactive Da te
--- OUTSIDE RECORDS SUMMARY | 2024-10-04 18:40 | XMS_ITS | Encounter Summary ---
Author Organization [facility] Address [address] [place] [address] Care Team Providers Care Fur Blowing Machine Operator Name Role Phone Angeline Osuna MD Primary Care Provider [phone] Reason for Visit * Reason Onset Date Comments Appointment Related 01/11/2022 Encounter Details Date Type Department Care Team (Late st Contact Info) Description 01/11/2022 Telephone [facility] Breast Imaging [facility] - [address] [address] Ashlee Fisher Appointment Related Social History Tobacco Use Types [...] encounter Miscellaneous Notes * Telephone Encounter - Ashlee Fisher - 01/11/2022 1148 EST Spoke with patient and she is now scheduled for breast imaging on 04.01.2022 at 130pm mammo and 215pm US documented in this encounter Plan of Treatment Upcoming Encounters Date Type Department Care Team (Late st Contact Info) Description 10/18/2024 16:30 EST Appointment [facility] Breast Imaging Mammography - [address] [address] documented as of this encounter Visit Diagnoses Not on filedocumented in this encounter Care Teams Fur Blowing Machine Operator Relationship Specialty Start Date End Date Angeline Osuna MD [address] [place] [phone] PCP - General 04/19/15 documented as of this encounter
--- OUTSIDE RECORDS SUMMARY | 2024-10-04 18:40 | XMS_ITS ---
Author Organization Unknown Address [address] [place] [phone] Phone Care Team Providers Care Car Repairer Pullman Name Role Phone JOSE Elaine Attending Unavailable CHACE Mendez Primary Unavailable Social History Type Status Start Date End Date Code Code Syst em Smoking History Former smoker [id number] SNOMED CT Sex Female Hospital Discharge Instructions [...] Sys tem Tailor's bunion of right foot 03/25/2023 [id number] SNOMED-CT Personal Care Team Section Performer Name Performer Role Active Date Inactive Da te
--- OUTSIDE RECORDS SUMMARY | 2024-10-04 18:40 | XMS_ITS | Encounter Summary ---
Author Organization [facility] Address [address] [place] [address] Care Team Providers Care Track Superintendent Name Role Phone Angeline Osuna MD Primary Care Provider [phone] Reason for Referral * Radiology Services (Routine/Next Available) - Authorization Not Required Specialty Diagnoses / Procedures Referred By Syed t Referred To Contact Diagnoses Screening mammogram, encounter for Procedures MA BREAST SCREENING ANGEL BILATERAL Angeline Osuna MD [address] [place] [address] Phone: tel: fax: [facility] Referral ID Status Reason Start Date Expiration Date Visits Requested Visits Authorized [id number] Authorization Not Required 2 1 1 Reason for Visit * Radiology Services (Routine/Next Available) - Authorization Not Required Specialty Diagnoses / Procedures Referred By Syed corey Referred To Contact Diagnoses Screening mammogram, encounter for Procedures MA BREAST SCREENING ANGEL BILATERAL Angeline Osuna MD [address] [place] [address] Phone: tel: fax: [facility] Referral ID Status Reason Start Date Expiration Date Visits Requested Visits Authorized [id number] Authorization Not Required 2 1 1 Encounter Details Date Type Department Care Team (Latest Contact Info) Description 04/17/2023 14:14 EDT - 04/17/2023 23:59 EDT Hospital Encounter [facility] Breast Imaging Mammography [address] [address] Screening mammogram, encounter for Discharge Disposition: Home or Self Care Social [...] Contact Info) Description 10/18/2024 16:30 EST Appointment [facility] Breast Imaging [address] [address] documented as of this encounter Procedures Procedure Name Priority Date/Time Associated Diagnosis Comments MA BREAST SCREENING ANGEL BILATERAL Routine 04/17/2023 14:36 EDT Screening mammogram, encounter for documented in this encounter Results * MA BREAST SCREENING ANGEL BILATERAL (04/17/2023 14:36 EDT) Anatomical Region Laterality Modality Breast Bilateral Mammography 04/17/2023 16:2 6 EDT Impressions 04/17/2023 16:26 EDT Benign, no evidence of malignancy. RECOMMENDATION: Routine screening mammography is recommended. OVERALL ASSESSMENT: BI-RADS 2: Benign These results will be communicated to your patient via a lay letter from Radiology. If any additional imaging is needed we will contact your patient directly. Narrative 04/17/2023 16:26 EDT MA BREAST SCREENING ANGEL BILATERAL ??04/17/2023 2:30 PM History: routine screening Comparison: ??Comparison has been made to previous images. Technique: Routine 3D tomosynthesis with synthesized 2D views with CAD Breast Composition: There are scattered areas of fibroglandular density. Bilateral Breast Findings: ??No significant masses, calcifications or other abnormalities are seen. There are several circumscribed masses within the right breast, many of which have fluctuated in size over time. Procedure Note Karina Gonsales MD - 04/17/2023 MA BREAST SCREENING ANGEL BILATERAL 04/17/2023 2:30 PM History: routine screening Comparison: Comparison has been made to previous images. Technique: Routine 3D tomosynthesis with synthesized 2D views with CAD Breast Composition: There are scattered areas of fibroglandular density. Bilateral Breast Findings: No significant masses, calcifications or otherabnormalities are seen. There are several circumscribed masses within theright breast, many of which have fluctuated in size over time. IMPRESSION Benign, no evidence of malignancy. RECOMMENDATION: Routine screening mammography is recommended. OVERALL ASSESSMENT: BI-RADS 2: Benign These results will be communicated to your patient via a lay letter fromRadiology. If any additional imaging is needed we will contact yourpatient directly. Angeline Osuna MD IMG MAMMOGRAPHY ORDERABLES Fin al Result documented in this encounter Visit Diagnoses Diagnosis Screening mammogram, encounter for documented in this encounter Care Teams Track Superintendent Relationship Specialty Start Date End Date Angeline Osuna MD [address] [place] [phone] PCP - General 04/19/15 documented as of this encounter
--- OUTSIDE RECORDS SUMMARY | 2024-10-04 18:40 | XMS_ITS | Encounter Summary ---
Author Organization [facility] Address [address] [place] [address] Care Team Providers Care Internal Combustion Engine Subassembler Name Role Phone Angeline Osuna MD Primary Care Provider [phone] Reason for Visit * (Routine) - Receiving Office to Obtain Authorization Specialty Diagnoses / Procedures Referred By Syed corey Referred To Contact Procedures MA BREAST OUTSIDE IMAGES Unknown, Provider, MD Referral ID Status Reason Start Date Expiration Date Visits Requested Visits Authorized [id number] Receiving Office to Obtain Authorization 03/29/2021 1 1 Encounter Details Date Type Department Care Team (Latest Contact Info) Description 03/21/2021 - 03/21/2021 23:59 EDT Hospital Encounter [facility] Secondary Reads [place] Discharge Disposition: Home or Self Care Social [...] Contact Info) Description 10/18/2024 16:30 EST Appointment [facility] Breast Imaging Mammography - [facility] [address] [place] [address] documented as of this encounter Procedures Procedure Name Priority Date/Time Associated Diagnosis Comments MA OUTSIDE IMAGES BREAST OTHER Routine 03/29/2021 6:18 EDT documented in this encounter Results * MA BREAST OUTSIDE IMAGES (03/29/2021 6:18 EDT) Narrative 03/29/2021 6:18 EDT This is a non-reportable exam. us Provider Unknown MD POLLARD OTHER IMAGING ORDERABLES Final Result documented in this encounter Visit Diagnoses Not on filedocumented in this encounter Care Teams Internal Combustion Engine Subassembler Relationship Specialty Start Date End Date Angeline Osuna MD [address] [place] [phone] PCP - General 04/19/15 documented as of this encounter
--- OUTSIDE RECORDS SUMMARY | 2024-10-04 18:40 | XMS_ITS | Encounter Summary ---
Author Organization [facility] Address [address] [place] [address] Care Team Providers Care Sheet Rock Applicator Name Role Phone Angeline Osuna MD Primary Care Provider [phone] Encounter Details Date Type Department Care Team (Latest Contact Info) Description 04/11/2021 Travel Social History Tobacco Use Types Packs/Day [...] have Coronavirus / COVID-19? No / Unsure 04/11/2021 17:48 EDT documented as of this encounter Plan of Treatment Upcoming Encounters Date Type Department Care Team (Late st Contact Info) Description 10/18/2024 16:30 EST Appointment [facility] Breast Imaging Mammography - [facility] [address] [place], [place] [address] documented as of this encounter Visit Diagnoses Not on filedocumented in this encounter Care Teams Sheet Rock Applicator Relationship Specialty Start Date End Date Angeline Osuan MD [address] [facility] [place] [phone] PCP - General 04/19/15 documented as of this encounter
--- OUTSIDE RECORDS SUMMARY | 2024-10-04 18:40 | XMS_ITS | Encounter Summary ---
Author Organization [facility] Address [address] [place] [address] Care Team Providers Care Retail Loss Prevention Officer Name Role Phone Angeline Osuna MD Primary Care Provider [phone] Reason for Visit * Reason Onset Date Comments Appointment Related 09/19/2022 Encounter Details Date Type Department Care Team (Late st Contact Info) Description 09/19/2022 Telephone [facility] Breast Imaging [facility] - [address] [address] Dulce Gustafson Appointment Related Social History Tobacco Use Types [...] encounter Miscellaneous Notes * Telephone Encounter - Dulce Gustafson - 09/19/2022 1249 EDT Scheduled MA & US 10/04/22 documented in this encounter Plan of Treatment Upcoming Encounters Date Type Department Care Team (Late st Contact Info) Description 10/18/2024 16:30 EST Appointment [facility] Breast Imaging Mammography - [address] [address] documented as of this encounter Visit Diagnoses Not on filedocumented in this encounter Care Teams Retail Loss Prevention Officer Relationship Specialty Start Date End Date Angeline Osuna MD [address] [place] [phone] PCP - General 04/19/15 documented as of this encounter
--- OUTSIDE RECORDS SUMMARY | 2024-10-04 18:40 | XMS_ITS | Encounter Summary ---
Author Organization [facility] Address [address] [place] [address] Care Team Providers Care Test Pilot Name Role Phone Angeline Osuna MD Primary Care Provider [phone] Encounter Details Date Type Department Care Team (Latest Contact Info) Description 10/03/2021 Travel Social History Tobacco Use Types Packs/Day [...] 13:57 EST documented as of this encounter Plan of Treatment Upcoming Encounters Date Type Department Care Team (Late st Contact Info) Description 10/18/2024 16:30 EST Appointment [facility] Breast Imaging Mammography - [facility] [address] [place] [address] documented as of this encounter Visit Diagnoses Not on filedocumented in this encounter Care Teams Test Pilot Relationship Specialty Start Date End Date Angeline Osuna MD [address] [facility] [place] [phone] PCP - General 04/19/15 documented as of this encounter
--- OUTSIDE RECORDS SUMMARY | 2024-10-04 18:40 | XMS_ITS | Clinical Summary ---
Author Organization [facility] Address [address] [place] [address] Care Team Providers Care Home Care Liaison Name Role Phone Angeline Osuna MD Primary Care Provider [phone] Allergies No known active allergies Medications No known medications Active Problems No known active problems Family History Medical History Relation Comments Breast Cancer Cousin maternal Breast Cancer Father BRCA Negative Relation Status Comments Cousin Father Social History Tobacco Use Types Packs/Day Years Used Date Smoking Tobacco: Never Interpersonal Safety Answer Date Record ed Physically Hurt Never 03/29/2021 Verbally Threaten Not on file 03/29/2021 Comments No Sex and Gender Information Value Date Recorded Sex Assigned at Not on file Legal Sex Female 12:15 EDT Gender Identity Female 04/11/2021 17:48 EDT Sexual Orientation Not on file Obstetrics History Para Term AB IAB SAB Ectopic Multiple Livin g Live Births 2 2 Date Outcome GA Total Labor Labor/2nd/3rd Weight Sex Type Anes PTL Stefany A1 A5 Name Clin Para Para Last Filed Vital Signs Vital Sign Reading [...] Contact Info) Description 10/18/2024 16:30 EST Appointment [facility] Breast Imaging Mammography - [facility] [address] [place] [address] Health Maintenance Due Date Last Done Comments Hepatitis C Screen 1950 Fall Risk Screening 2015 COVID-19 Vaccine (2023-25 season) 2024 RSV Immunization ( o r 60+ Years) (1 - 1-dose 75+ series) 2025 Insurance [facility] [place] [facility] [place] Care Teams Home Care Liaison Relationship Specialty Start Date End Date Angeline Osuna MD [address] [place] [phone] PCP - General 04/19/15
--- OUTSIDE RECORDS SUMMARY | 2024-10-04 18:40 | XMS_ITS | Encounter Summary ---
Author Organization [facility] Address [address] [place] [address] Care Team Providers Care Radiologic Technology Instructor Name Role Phone Angeline Osuna MD Primary Care Provider [phone] Reason for Visit * Reason Onset Date Comments Follow-up 10/21/2022 Encounter Details Date Type Department Care Team (Late st Contact Info) Description 10/21/2022 Telephone [facility] Breast Imaging Mammography - [facility] [address] [place], [place] [phone] Tosha Leyva Follow-up Social History Tobacco Use Types Packs/Day Years [...] encounter Miscellaneous Notes * Telephone Encounter - Tosha Leyva - 10/21/2022 1234 EST Returned pt's call about imaging with injured shoulder. Radha thought she would be able to bring her arm up for imaging so she will keep her appointment. I did mention she should just alert her tech so they are aware of her shoulder issues. documented in this encounter Plan of Treatment Upcoming Encounters Date Type Department Care Team (Late st Contact Info) Description 10/18/2024 16:30 EST Appointment [facility] Breast Imaging Mammography - [address] [address] documented as of this encounter Visit Diagnoses Not on filedocumented in this encounter Care Teams Radiologic Technology Instructor Relationship Specialty Start Date End Date Angeline Osuna MD [address] [place] [address] PCP - General 04/19/15 documented as of this encounter
--- OUTSIDE RECORDS SUMMARY | 2024-10-04 18:40 | XMS_ITS | Encounter Summary ---
Author Organization [facility] Address [address] [place] [address] Care Team Providers Care Direct Selling Counselor Name Role Phone Angeline Osuna MD Primary Care Provider [phone] Reason for Referral * Radiology Services (Routine/Next Available) - New Request Specialty Diagnoses / Procedures Referred By Syed corey Referred To Contact Diagnoses Other abnormal and inconclusive findings on diagnostic imaging of breast Procedures MA BREAST DIAGNOSTIC ANGEL BILATERAL Angeline Osuna MD [address] [place] [address] Phone: tel: fax: [facility] Referral ID Status Reason Start Date Expiration Date V isits Requested Visits Authorized [id number] New Request 10/26/2021 1 1 Reason for Visit * Radiology Services (Routine/Next Available) - New Request Specialty Diagnoses / Procedures Referred By Syed corey Referred To Contact Diagnoses Other abnormal and inconclusive findings on diagnostic imaging of breast Procedures MA BREAST DIAGNOSTIC ANGEL BILATERAL Angeline Osuna MD [address] [place] [address] Phone: tel: fax: [facility] Referral ID Status Reason Start Date Expiration Date V isits Requested Visits Authorized [id number] New Request 10/26/2021 1 1 Encounter Details Date Type Department Care Team (Latest Contact Info) Description 04/01/2022 13:18 EDT - 04/01/2022 23:59 EDT Hospital Encounter [facility] Breast Imaging Mammography [address] [phone] Other abnormal and inconclusive findings on diagnostic [...] Pressure - - Pulse - - Temperature - - Respiratory Rate - - Oxygen Saturation - - Inhaled Oxygen Concentration - - Weight - - Height 157.5 cm (5' 2) 04/01/2022 1336 EDT Body Mass Index - - documented in this encounter Discharge Disposition Disposition Code Departure Means Destination Home or Self Care documented in this encounter Plan of Treatment Upcoming Encounters Date Type Department Care Team (Late st Contact Info) Description 10/18/2024 16:30 EST Appointment [facility] Breast Imaging [address] [address] documented as of this encounter Procedures Procedure Name Priority Date/Time Associated Diagnosis Comments MA BREAST DIAGNOSTIC ANGEL BILATERAL Routine 04/01/2022 13:39 EDT Other abnormal and inconclusive findings on diagnostic imaging of breast documented in this encounter Results * MA BREAST DIAGNOSTIC ANGEL BILATERAL (04/01/2022 13:39 EDT) Anatomical Region Laterality Modality Breast Bilateral Mammography 04/01/2022 15:1 7 EDT Addenda Addendum by [...] Overall assessment: BI-RADS 3: ??Probably benign. The java sdet discussed the radiologist's interpretation and follow up [...] abnormality is seen. us Angeline Osuna MD IMG MAMMOGRAPHY ORDERABLES Gilberto cee Result - Final documented in this encounter Visit Diagnoses Diagnosis Other abnormal and inconclusive findings on diagnostic imaging of breast documented in this encounter Care Teams Direct Selling Counselor Relationship Specialty Start Date End Date Angeline Osuna MD [address] [place] [address] PCP - General 04/19/15 documented as of this encounter
== END 2024-10-04 18:37 | disposition home or self-care (01) ==
LOC: NCHCN 18:36
PROVIDERS: PCP Family Medicine; Visit Provider Family Medicine
DX: I10 Essential (primary) hypertension (principal)
CPT/HCPCS: 80048